=== PATIENT | male | born 1990 | race African-American/Black ===

== ENCOUNTER 2016-11-28 03:31 | Emergency (ER) | payer MEDICAID, OTHER ==
[~2016-11-28] VITALS: Ht 180.3 cm; Wt 74.0 kg
[~2016-11-28 03:31] MED LIST: FLUO20CA33; LORA-250; RISP2
[2016-11-28 06:26] LABS: BASOPHILS % 0.5 % (0.0-2.0); EOSINOPHILS % 3.6 % (0.0-5.0); HEMATOCRIT. 36.5 % (42.0-52.0); HEMOGLOBIN. 12.2 g/dL (14.0-18.0); LYMPHOCYTES % 28.3 % (20.0-50.0); MEAN CORPUSCULAR VOLUME 80.6 fL (80.0-94.0); MEAN PLATELET VOLUME 7.1 fl (7.4-10.4); MONOCYTES % 10.3 % (2.0-8.0); NEUTROPHILS % 57.3 % (40.0-76.0); PLATELET 329 x1000/uL (130-400); RED BLOOD CELL COUNT 4.53 mill/uL (4.7-6.1)
[2016-11-28] MEDS ORDERED: OLANZAPINE 5MG TABLET ODT PO SCH (06:30)
[2016-11-28] MEDS ORDERED: LORAZEPAM 1MG TABLET PO ONE (06:30)
[2016-11-28 06:38] LABS: CARBON DIOXIDE 25 mEq/L (21-32); CHLORIDE 104 mEq/L (98-107); ETHANOL BLOOD < 10 mg/dL
[2016-11-28 06:48] LABS: *AMPHETAMINES SCREEN URINE PRESUMTIVE POSITIVE (NEGATIVE); *BARBITURATES SCREEN URINE NEGATIVE (NEGATIVE); *BENZODIAZEPINES SCREEN URINE NEGATIVE (NEGATIVE); *COCAINE SCREEN URINE NEGATIVE (NEGATIVE); CANNABINOID URINE SCREEN NEGATIVE (NEGATIVE); METHADONE URINE SCREEN PRESUMTIVE POSITIVE (NEGATIVE); OPIATES URINE SCREEN PRESUMTIVE POSITIVE (NEGATIVE); PHENCYCLIDINE URINE SCREEN NEGATIVE (NEGATIVE)
[2016-11-28] MEDS ORDERED: OLANZAPINE 5MG TABLET ODT PO ONE (07:00)
[2016-11-29 06:31] VITALS: BP 111/77
== END 2016-11-29 09:50 | disposition home or self-care (01) ==
LOC: ER 03:31
DX: F20.9 Schizophrenia, unspecified (principal); R45.851 Suicidal ideations; F15.10 Other stimulant abuse, uncomplicated; F11.10 Opioid abuse, uncomplicated; Z91.14 Patient's other noncompliance with medication regimen
CPT/HCPCS: 36415; 80048; 80305; 80307; 80329; 85025; 99284; G0482

== ENCOUNTER 2018-01-04 17:08 | Emergency (ER) | payer MEDICAID ==
[~2018-01-04] VITALS: Ht 180.3 cm; Wt 77.0 kg
[2018-01-05 00:30] VITALS: BP 110/70
== END 2018-01-05 01:10 | disposition home or self-care (01) ==
LOC: ER 17:08
DX: M25.561 Pain in right knee (principal); F20.9 Schizophrenia, unspecified; F17.200 Nicotine dependence, unspecified, uncomplicated; Z79.899 Other long term (current) drug therapy
CPT/HCPCS: 99281; 99282

== ENCOUNTER 2024-10-04 18:25 | Emergency (ER) | payer SELFPAY ==
[~2024-10-04] VITALS: Ht 182.9 cm; Wt 75.0 kg
[2024-10-04 18:31] VITALS: O2SAT 97
[2024-10-04 20:24] LABS: BASOPHILS % 1.2 % (0.0-2.0); EOSINOPHILS % 3.3 % (0.0-5.0); HEMATOCRIT. 32.5 % (42.0-52.0); HEMOGLOBIN. 10.1 g/dL (14.0-18.0); LYMPHOCYTES % 26.9 % (20.0-50.0); MEAN PLATELET VOLUME 7.0 fl (7.4-10.4); MONOCYTES % 10.0 % (2.0-8.0); NEUTROPHILS % 58.6 % (40.0-76.0); PLATELET 344 x1000/uL (130-400); RED BLOOD CELL COUNT 4.36 mill/uL (4.7-6.1); RED CELL DISTRIBUTION WIDTH 23.5 % (11.6-14.6)
[2024-10-04 20:27] LABS: ADD RBC MORPHOLOGY YES
[2024-10-04 20:33] LABS: UREA NITROGEN BLOOD 55 mg/dL (9-23)
[2024-10-04 20:34] LABS: ASPARTATE AMINOTRANSFERASE 24 IU/L (<34)
[2024-10-04 20:35] LABS: BILIRUBIN DIRECT 0.2 mg/dL (<=3.0); BILIRUBIN TOTAL 0.4 mg/dL (0.1-1.0); PROTEIN TOTAL 7.2 g/dL (6.0-8.3)
[2024-10-04 20:45] LABS: CREATININE 10.2 mg/dL (0.6-1.3)
[2024-10-04 20:50] LABS: PLATELET ESTIMATE NORMAL
[2024-10-04 21:46] LABS: INR 1.0
[2024-10-05] MEDS ORDERED: DOCUSATE SODIUM 100MG CAPSULE PO PRN (00:45)
[2024-10-05] MEDS ORDERED: ONDANSETRON HCL 4MG/2ML INJ IV PRN (00:45)
[2024-10-05] MEDS ORDERED: SODIUM ZIRCONIUM CYCLOSILICATE 10GM/PACKET PO NR (00:45)
[2024-10-05] MEDS ORDERED: IPRATROPIUM/ALBUTEROL 0.5-3(2.5)MG/3ML NEB HHN PRN (00:45)
[2024-10-05] MEDS ORDERED: CLONIDINE 0.1MG TABLET PO PRN (00:45)
[2024-10-05] MEDS ORDERED: ACETAMINOPHEN 325MG TABLET PO PRN ×2 (00:45)
[2024-10-05 00:47] VITALS: BP 131/96; PULSE 71; RESP 12; TEMP 36.7; O2SAT 97
[2024-10-05 01:10] LABS: PHOSPHORUS 4.7 mg/dL (2.5-4.9)
[2024-10-05] MEDS ORDERED: PANTOPRAZOLE SODIUM 40 MG/VIAL IV SCH (09:00)
== END 2024-10-05 01:40 | disposition home or self-care (01) ==
LOC: ER 18:33 → EDBEDREQ 23:55 → EDBEDREQTM 23:55 → ENRESERV 10-05 00:05 → ER 10-05 01:40 → CMPBEDREQ 10-06 07:17
DX: R18.8 Other ascites (principal); F20.9 Schizophrenia, unspecified; N18.6 End stage renal disease; R06.02 Shortness of breath; Z99.2 Dependence on renal dialysis; Z98.890 Other specified postprocedural states
CPT/HCPCS: 36415; 76705; 80048; 80076; 83540; 83550; 83735; 84100; 85025; 94640; 99285